=== PATIENT | male | born 1950 | race Caucasian/White ===

== ENCOUNTER 2024-05-23 12:04 | Outpatient (CLI) | payer MEDICARE, OTHER | END 2024-05-23 12:05 | disposition home or self-care (01) | LOC: CSHMRI 12:04 | PROVIDERS: ATTEND Emergency Medicine | DX: Z12.2 Encounter for screening for malignant neoplasm of respiratory organs (principal); Z87.891 Personal history of nicotine dependence; G62.9 Polyneuropathy, unspecified; I25.10 Atherosclerotic heart disease of native coronary artery without angina pectoris; I25.84 Coronary atherosclerosis due to calcified coronary lesion; M47.816 Spondylosis without myelopathy or radiculopathy, lumbar region; M47.817 Spondylosis without myelopathy or radiculopathy, lumbosacral region | CPT/HCPCS: 71271; 72148 ==

== ENCOUNTER 2024-06-06 07:23 | Outpatient (CLI) | payer MEDICARE | END 2024-06-06 07:24 | disposition home or self-care (01) | LOC: CSHULT 07:23 | PROVIDERS: ATTEND Emergency Medicine | DX: N28.1 Cyst of kidney, acquired (principal) | CPT/HCPCS: 76770 ==